=== PATIENT | female | born 1990 ===

== ENCOUNTER → 2018-04-22 | Outpatient (CLI) | payer OTHER ==
[~2018-04-22] MED LIST: CODE1TAB37 PO; DOCUSATE SODIU100 MG PO; Mylicon 125MG PO
== END | disposition home or self-care (01) ==
LOC: NUCLEAR 12:52
DX: C73 Malignant neoplasm of thyroid gland (principal)
CPT/HCPCS: A9528; 78018; 78020

== ENCOUNTER 2021-07-17 00:37 | Outpatient (CLI) | payer OTHER | END 2021-07-17 10:49 | disposition home or self-care (01) | LOC: OBS/DEL 00:37 | PROVIDERS: ATTEND Obstetrics & Gynecology | DX: O26.853 Spotting complicating pregnancy, third trimester (principal); O99.283 Endocrine, nutritional and metabolic diseases complicating pregnancy, third trimester; E05.80 Other thyrotoxicosis without thyrotoxic crisis or storm; Z3A.37 37 weeks gestation of pregnancy ==

== ENCOUNTER 2021-07-24 06:01 | Inpatient (IN) | payer OTHER ==
[~2021-07-24] VITALS: Ht 170.2 cm; Wt 75.7 kg
== END 2021-07-26 15:10 | disposition home or self-care (01) | DRG 807 ==
LOC: OB/GYN 06:01 → LDR 06:01 → SURG-SUITE 06:01 → OB/GYN 08:13 → LDR 08:40 → OB/GYN 11:28 → SURG-SUITE 15:01
PROVIDERS: ADMIT Obstetrics & Gynecology; ATTEND Obstetrics & Gynecology
PROC: 10E0XZZ Delivery of Products of Conception, External Approach (ICD-10-PCS; principal; 2021-07-24)
PROC: 0KQM0ZZ Repair Perineum Muscle, Open Approach (ICD-10-PCS; 2021-07-24)
PROC: 4A1HXFZ Monitoring of Products of Conception, Cardiac Rhythm, External Approach (ICD-10-PCS; 2021-07-24)
DX: O99.284 Endocrine, nutritional and metabolic diseases complicating childbirth (principal); Z37.0 Single live birth; E03.9 Hypothyroidism, unspecified; O99.824 Streptococcus B carrier state complicating childbirth; O70.1 Second degree perineal laceration during delivery; Z3A.39 39 weeks gestation of pregnancy

== ENCOUNTER 2025-08-09 14:19 | Outpatient (CLI) | payer OTHER | END 2025-08-09 14:20 | disposition home or self-care (01) | LOC: PRENATAL 14:19 | PROVIDERS: ATTEND Obstetrics & Gynecology Maternal & Fetal Medicine | DX: O44.02 Complete placenta previa NOS or without hemorrhage, second trimester (principal); O99.282 Endocrine, nutritional and metabolic diseases complicating pregnancy, second trimester; O09.522 Supervision of elderly multigravida, second trimester; Z3A.21 21 weeks gestation of pregnancy ==